=== PATIENT | male | born 1945 | race Caucasian/White ===

== ENCOUNTER 2019-02-03 14:39 | Observation (INO) ==
[2019-02-03 14:46] VITALS: BMI 29.8
[2019-02-03] MEDS ORDERED: NS 1000 ML 1,000 ML ONE (14:57)
[2019-02-03 15:05] LABS: BASOPHILS # (AUTO) 0.1 X10^3/uL (0.0-0.1); BASOPHILS % (AUTO) 0.3 % (0.2-1.0); EOSINOPHILS # (AUTO) 0.1 x10^3/uL (0.0-0.2); EOSINOPHILS % (AUTO) 0.3 % (0.9-2.9); HEMATOCRIT 43.9 % (42.0-54.0); HEMOGLOBIN 14.7 g/dL (13.5-18.0); LYMPHOCYTES # (AUTO) 29.4 X10^3/uL (1.3-2.9); LYMPHOCYTES % (AUTO) 72.4 % (21.0-51.0); MEAN CORPUSCULAR HEMOGLOBIN 30.1 pg (27.0-34.0); MEAN CORPUSCULAR HGB CONC 33.5 g/dL (33.0-35.0); MEAN CORPUSCULAR VOLUME 89.6 fL (80.0-100.0); MONOCYTES # (AUTO) 1.2 x10^3/uL (0.3-0.8); NEUTROPHILS # (AUTO) 9.8 x10^3/uL (2.2-4.8); PLATELET COUNT 224 X10^3/uL (150.0-450.0); RED BLOOD COUNT 4.89 X10^6/uL (4.7-6.0)
[2019-02-03] MEDS ORDERED: NS 1000 ML 1,000 ML IV ONE (15:10)
[2019-02-03 15:15] LABS: WHITE BLOOD COUNT 40.7 X10^3/uL (3.6-10.0)
[2019-02-03 15:18] LABS: BLOOD UREA NITROGEN 27 mg/dL (7-18); CARBON DIOXIDE 29.4 mmol/L (21-32); CHLORIDE 100 mmol/L (98-107); SODIUM 135 mmol/L (136-145); TROPONIN I < 0.02 ng/mL (0-1.5); eGFR NON BLACK RACES 35 (>60)
[2019-02-03 15:22] LABS: ALANINE AMINOTRANSFERASE 43 Units/L (12-78); ALBUMIN 4.1 g/dL (3.4-5.0); ALKALINE PHOSPHATASE 75 Units/L (46-116); ASPARTATE AMINO TRANSFERASE 25 Units/L (15-37); CKMB % 1.6 % (<4); CREATINE KINASE 200 Units/L (39-308); CREATINE KINASE MB 3.1 ng/mL (0-4.0); TOTAL PROTEIN 7.8 g/dL (6.4-8.2)
[2019-02-03 15:29] LABS: PLATELET MORPHOLOGY COMMENT NORMAL (NORMAL)
--- NOTE | 2019-02-03 15:43 | DR.DIZZY ---
HPI Time seen Time Seen by Provider: 02/03/19 14:53 PCP Primary Care Physician: LUZ KELLER Complaint Chief Complaint Doctor Comments: A 73 y/o male came in with SOB, chest tightness. 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 There was no radiation of the chest tightness. Onset was about 1 hr. 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 He had some dizziness but nausea or vomiting. he has not been feeling good for a few weeks and was being treated as outpt. for Bronchitis. Chief Complaint:: PT. C/O SHORTNESS OF BREATH, DIZZINESS AND CHEST PAIN. SYMTPOMS BEGAN 1 HOUR REAL ESTATE ADMINISTRATIVE ASSISTANT. Nurses Notes Reviewed Nurses Notes Review: Yes Source History Provided: Patient Mode of Arrival Mode of Arrival: Ambulatory Timing Onset of Chief Complaint: 02/03/19 Came on: Suddenly Symptom Onset: Known Location of Weakness Weakness Location: None Context Onset: With light exertion Does pt take pot. toxic medication?: Yes History of: None Stroke Symptoms: None Modifying factors Worsens: Nothing Associated signs and symptoms Associated Signs and Symptoms: Vertigo PMH PMH Past Medical History: Yes Past Medical History: Hypertension Past Medical History Comment: BACTERIAL MENNINGITIS, CLL Past Surgical History: Yes Surgical History: Appendectomy and Tonsillectomy Family History History of Family Medical Conditions: Yes Family Medical History: Hypertension Social History Does patient currently use any type of tobacco product: No Have you used tobacco products in the last 12 months: No Type of Tobacco Use: None Does any household member use tobacco: No Alcohol Use: None Do you use any recreational Drugs:: No Lives With: Spouse Lives Where: Home infectious screening In the last 2 months have you had wt loss of >10#?: NO Have you had fever, night sweats or hemotysis?: No Have you traveled outside the country in the last 6 months?: No Isolation: Standard ROS Review of Systems Constitutional: No Symptoms Reported Eyes: No Symptoms Reported ENTM: No Symptoms Reported Respiratoy: Short of Breath Cardiovascular: Chest Pain Gastrointestinal/Abdominal: No Symptoms Reported Genitourinary: No Symptoms Reported Neurological: Dizziness Musculoskeletal: No Symptoms Reported Integumentary: No Symptoms Reported Hematologic/Lymphatic: No Symptoms Reported Endocrine: No Symptoms Reported Psychiatric: No Symptoms Reported PE Vital Signs Vitals: Temperature 97.2 F Pulse Rate [Apical] 66 Pulse Rate 90 Respiratory Rate 22 Blood Pressure [Left Arm] 128/57 Blood Pressure 121/55 O2 Sat by Pulse Oximetry 97 General Limitations: No Limitations General Appearance: Alert and In No Apparent Distress Head Head Exam: Normal Inspection, Atraumatic and Normocephalic Eyes Eye exam: Normal Appearance and EOMI ENT ENT Exam: Normal Oropharynx and Mucous Membranes Moist Neck Neck Exam: Normal Inspection, Full ROM and Trachea Midline Chest Chest Inspection: Normal Inspection and Symmetric Chest Wall Rise Respiratory Respiratory Exam: Normal Lung Sounds Bilat Cardiovascular Cardiovascular Exam: Regular Rate, Normal Rhythm, +S1 and +S2 Abdominal Exam Abdominal Exam: Normal Inspection, Normal Bowel Sounds and Soft Rectal Rectal Exam: Deferred Extremeties Extremities Exam: Normal Inspection and Full ROM Back Back Exam: Normal Inspection Neurologic Neurological Exam: Alert, Oriented X3 and Normal Gait Psychiatric Psychiatric Exam: Normal Affect and Normal Mood Skin Skin Exam: Warm and Dry COURSE Reevaluation 1st: Improved Education/Counseling Education/Counseling: Patient, Family, Education and Counseling Educated On: Treatment, Diagnosis, Prognosis and Needs for Follow Up ROR Labs Reviewed Laboratory Results Reviewed?: Yes Result Diagrams: 02/03/19 14:53 02/03/19 14:53 Laboratory: WBC 40.7 X10^3/uL (3.6-10.0) H* 02/03/19 14:53 RBC 4.89 X10^6/uL (4.7-6.0) 02/03/19 14:53 Hgb 14.7 g/dL (13.5-18.0) 02/03/19 14:53 Hct 43.9 % (42.0-54.0) 02/03/19 14:53 MCV 89.6 fL (80.0-100.0) 02/03/19 14:53 MCH 30.1 pg (27.0-34.0) 02/03/19 14:53 MCHC 33.5 g/dL (33.0-35.0) 02/03/19 14:53 RDW 13.0 % (11.6-16.5) 02/03/19 14:53 Plt Count 224 X10^3/uL (150.0-450.0) 02/03/19 14:53 Plt Count Comment Adequate (ADEQUATE) 02/03/19 14:53 MPV 7.0 fL (7.4-11.0) L 02/03/19 14:53 Neut % (Auto) 24.0 % (42.0-75.0) L 02/03/19 14:53 Lymph % (Auto) 72.4 % (21.0-51.0) H 02/03/19 14:53 [place] % (Auto) 3.0 % (0.0-13.0) 02/03/19 14:53 Eos % (Auto) 0.3 % (0.9-2.9) L 02/03/19 14:53 Baso % (Auto) 0.3 % (0.2-1.0) 02/03/19 14:53 Neut # (Auto) 9.8 x10^3/uL (2.2-4.8) H 02/03/19 14:53 Lymph # (Auto) 29.4 X10^3/uL (1.3-2.9) H 02/03/19 14:53 [place] # (Auto) 1.2 x10^3/uL (0.3-0.8) H 02/03/19 14:53 Eos # (Auto) 0.1 x10^3/uL (0.0-0.2) 02/03/19 14:53 Baso # (Auto) 0.1 X10^3/uL (0.0-0.1) 02/03/19 14:53 Absolute Nucleated RBC 0.2 /100WBC 02/03/19 14:53 Total Counted 100 02/03/19 14:53 Neutrophils % (Manual) 25 % (39-76) L 02/03/19 14:53 Lymphocytes % (Manual) 73 % (13-43) H 02/03/19 14:53 Monocytes % (Manual) 2 % (4-9) L 02/03/19 14:53 Atypical Lymphocytes Noted 02/03/19 14:53 Plt Morphology Comment Normal (NORMAL) 02/03/19 14:53 RBC Morphology Normal (NORMAL) 02/03/19 14:53 INR Target Range - 02/03/19 14:53 INR 1.19 (0.8-1.3) 02/03/19 14:53 D-Dimer 109 ng/mL (0-400) 02/03/19 14:53 Sodium 135 mmol/L (136-145) L 02/03/19 14:53 Corrected Sodium TNP 02/03/19 14:53 Potassium 4.7 mmol/L (3.5-5.1) 02/03/19 14:53 Chloride 100 mmol/L (98-107) 02/03/19 14:53 Carbon Dioxide 29.4 mmol/L (21-32) 02/03/19 14:53 BUN 27 mg/dL (7-18) H 02/03/19 14:53 Creatinine 2.00 mg/dL (0.70-1.30) H 02/03/19 14:53 Est GFR (MDRD) Af Amer 42 (>60) L 02/03/19 14:53 Est GFR (MDRD) Non-Af 35 (>60) L 02/03/19 14:53 Glucose 107 mg/dL (65-99) H 02/03/19 14:53 Lactic Acid 0.8 mmol/L (0.4-2.0) 02/03/19 15:23 Calcium 10.0 mg/dL (8.5-10.1) 02/03/19 14:53 Corrected Calcium TNP 02/03/19 14:53 Total Bilirubin 0.80 mg/dL (0.2-1.0) 02/03/19 14:53 AST 25 Units/L (15-37) 02/03/19 14:53 ALT 43 Units/L (12-78) 02/03/19 14:53 Alkaline Phosphatase 75 Units/L (46-116) 02/03/19 14:53 Creatine Kinase 200 Units/L (39-308) 02/03/19 14:53 CK-MB (CK-2) 3.1 ng/mL (0-4.0) 02/03/19 14:53 CK/CKMB % Calc 1.6 % (<4) 02/03/19 14:53 Troponin I < 0.02 ng/mL (0-1.5) 02/03/19 14:53 Total Protein 7.8 g/dL (6.4-8.2) 02/03/19 14:53 Albumin 4.1 g/dL (3.4-5.0) 02/03/19 14:53 Globulin 3.7 g/dL (2.5-4.5) 02/03/19 14:53 Albumin/Globulin Ratio 1.1 Ratio (1.1-2.1) 02/03/19 14:53 XRAY XRAY Interpreted by: Radiologist XRAY Findings: CXR: no acute cardiopulmonary process. findings of COPD. EKG Rate: 79 [place]: Normal Rhythm: NSR Block: None Hypertrophy: None ST: Normal Diagnosis Discharge Problem: Acute dyspnea, CML (chronic myelocytic leukemia) Chest pain Qualifiers: Chest pain type: unspecified Qualified Code(s): R07.9 - Chest pain, unspecified COPD (chronic obstructive pulmonary disease) Qualifiers: COPD type: emphysema Emphysema type: panlobular Qualified Code(s): J43.1 - Panlobular emphysema
--- NOTE | 2019-02-03 16:12 | RAD ---
HISTORY: Shortness of breath and dizziness Study: Single view of the chest. Comparison: None. Findings: The cardiomediastinal silhouette is normal. No focal consolidations, pleural effusions or pneumothorax. Osseous structures demonstrate no acute abnormality. Bilateral hyper expansion with coarsening of interstitial markings. IMPRESSION: 1. No acute cardiopulmonary process. 2. Findings of COPD. Reported By:
[2019-02-03] MEDS: NS 1000 ML 1,000 ML IV SCH (16:18)
[2019-02-03] MEDS ORDERED: ZITHROMAX TAB 250 MG PO ONE (17:34)
[2019-02-03] MEDS ORDERED: ~Z-PAK 5 DAY (ZITHROMAX) PO ONE (17:34)
[2019-02-03] MEDS ORDERED: REFLEX: PROVENTIL NEB & PulmiCORT NEB~ NEB SCH (17:45)
[2019-02-03] MEDS ORDERED: ZITHROMAX TAB 250 MG ONE (17:50)
[2019-02-03] MEDS: PROVENTIL NEB TX 0.083% 2.5MG/ 3ML NEB SCH (18:14)
[2019-02-03 18:25] LABS: CKMB % 1.6 % (<4); CREATINE KINASE 154 Units/L (39-308); CREATINE KINASE MB 2.4 ng/mL (0-4.0); TROPONIN I < 0.02 ng/mL (0-1.5)
[2019-02-03] MEDS ORDERED: PULMICORT NEB TX 0.5 MG NEB SCH (21:00)
[2019-02-03] MEDS: MUCINEX DM PO SCH (21:00)
[2019-02-03 21:12] LABS: BILIRUBIN,URINE NEGATIVE (NEGATIVE); BLOOD/HEMOGLOBIN,URINE 1+ (NEGATIVE); GLUCOSE, URINE NEGATIVE (NEGATIVE); KETONES,URINE NEGATIVE (NEGATIVE); LEUKOCYTE ESTERASE ,URINE NEGATIVE (NEGATIVE); NITRITES,URINE NEGATIVE (NEGATIVE); PROTEIN,URINE 2+ (NEGATIVE); UROBILINOGEN,URINE NORMAL (NORMAL)
[2019-02-03 21:21] LABS: APPEARANCE,URINE SLIGHTLY HAZY (CLEAR); COLOR,URINE YELLOW (YELLOW)
[2019-02-03 21:22] LABS: BACTERIA,URINE NEGATIVE /HPF (NEGATIVE); GRANULAR CASTS,URINE RARE /LPF (NEGATIVE); HYALINE CASTS, URINE FEW /LPF (NEGATIVE); MUCUS,URINE FEW /HPF (NEGATIVE); RBC,URINE 0-2 /HPF (NONE SEEN); SQUAMOUS EPITHELIAL CELL,UR FEW /HPF (NEGATIVE)
[2019-02-04] MEDS: PROVENTIL NEB TX 0.083% 2.5MG/ 3ML NEB SCH ×2 (00:55→05:07)
[2019-02-04 01:00] LABS: CKMB % 1.4 % (<4); CREATINE KINASE 113 Units/L (39-308); CREATINE KINASE MB 1.6 ng/mL (0-4.0); TROPONIN I < 0.02 ng/mL (0-1.5)
[2019-02-04] MEDS: NS 1000 ML 1,000 ML IV SCH ×2 (01:58→10:56)
[2019-02-04 06:18] LABS: BASOPHILS # (AUTO) 0.1 X10^3/uL (0.0-0.1); BASOPHILS % (AUTO) 0.4 % (0.2-1.0); EOSINOPHILS # (AUTO) 0.1 x10^3/uL (0.0-0.2); EOSINOPHILS % (AUTO) 0.8 % (0.9-2.9); HEMATOCRIT 36.4 % (42.0-54.0); HEMOGLOBIN 12.1 g/dL (13.5-18.0); LYMPHOCYTES # (AUTO) 11.9 X10^3/uL (1.3-2.9); LYMPHOCYTES % (AUTO) 71.7 % (21.0-51.0); MEAN CORPUSCULAR HEMOGLOBIN 30.1 pg (27.0-34.0); MEAN CORPUSCULAR HGB CONC 33.2 g/dL (33.0-35.0); MEAN CORPUSCULAR VOLUME 90.9 fL (80.0-100.0); MEAN PLATELET VOLUME 7.6 fL (7.4-11.0); MONOCYTES # (AUTO) 0.7 x10^3/uL (0.3-0.8); MONOCYTES % (AUTO) 4.2 % (0.0-13.0); NEUTROPHILS # (AUTO) 3.8 x10^3/uL (2.2-4.8); NEUTROPHILS % (AUTO) 22.9 % (42.0-75.0); PLATELET COUNT 142 X10^3/uL (150.0-450.0); RED BLOOD COUNT 4.01 X10^6/uL (4.7-6.0); RED CELL DISTRIBUTION WIDTH 12.9 % (11.6-16.5); WHITE BLOOD COUNT 16.5 X10^3/uL (3.6-10.0)
[2019-02-04 06:22] LABS: ALANINE AMINOTRANSFERASE 32 Units/L (12-78); ALKALINE PHOSPHATASE 56 Units/L (46-116); ASPARTATE AMINO TRANSFERASE 16 Units/L (15-37); BLOOD UREA NITROGEN 27 mg/dL (7-18); CALCIUM 8.9 mg/dL (8.5-10.1); CARBON DIOXIDE 27.8 mmol/L (21-32); CHLORIDE 105 mmol/L (98-107); CHOLESTEROL 115 mg/dL (0-200); COR CA(FOR HYPOALB) 9.7 mg/dL (8.5-10.1); COR NA(FOR HYPERGLY) 140 mmol/L (136-145); CREATININE 1.27 mg/dL (0.70-1.30); HDL CHOLESTEROL 30 mg/dL (40-60); SODIUM 140 mmol/L (136-145); TRIGLYCERIDES 62 mg/dL (0-150); eGFR NON BLACK RACES 59 (>60)
[2019-02-04 06:23] LABS: CHOL/HDL RATIO 3.8 (0.0-5.0)
[2019-02-04 06:31] LABS: CKMB % 1.7 % (<4); CREATINE KINASE 94 Units/L (39-308); CREATINE KINASE MB 1.6 ng/mL (0-4.0); TROPONIN I < 0.02 ng/mL (0-1.5)
[2019-02-04 06:48] LABS: PLATELET MORPHOLOGY COMMENT NORMAL (NORMAL)
[2019-02-04] MEDS: MUCINEX DM PO SCH (08:10)
[2019-02-04 10:36] VITALS: BP 114/58
== END 2019-02-04 11:45 | disposition home or self-care (01) ==
LOC: ER 14:43 → MED/SURG 14:43
PROVIDERS: ADMIT Internal Medicine; ATTEND Obstetrics & Gynecology Obstetrics
DX: J30.89 Other allergic rhinitis; M94.0 Chondrocostal junction syndrome [Tietze]; R06.02 Shortness of breath; R55 Syncope and collapse; E86.0 Dehydration; R94.4 Abnormal results of kidney function studies; R07.89 Other chest pain
CPT/HCPCS: 36415; 71010; 71045; 80053; 80061; 81001; 82550; 82553; 83605; 84484; 85025; 85378; 85610; 87040; 93005; 94640; 94760; 96365; 96367; 99284; A4222; Q0144; G0378; J7030; J7613; J7626